=== PATIENT | female | born 1980 | race Caucasian/White ===

== ENCOUNTER 2020-11-15 23:37 | Emergency (ER) | payer BC ==
[2020-11-15] MEDS ORDERED: Lidocaine 2% 20 ml MDV ONE (23:40)
[2020-11-16] MEDS ORDERED: Ondansetron ODT 4 MG TAB ONE (00:02)
== END 2020-11-16 00:10 | disposition home or self-care (01) ==
LOC: BURERS 23:37
DX: T16.1XXA Foreign body in right ear, initial encounter (principal)
CPT/HCPCS: 99282; Q0162

== ENCOUNTER 2022-06-05 09:32 | Emergency (ER) | payer BC ==
[2022-06-05] MEDS ORDERED: Ondansetron PF 4 MG/2 ML Vial ONE (10:08)
[2022-06-05] MEDS ORDERED: Ketorolac Tromethamine 30 MG/ML VIAL ONE (10:08)
[2022-06-05 10:25] LABS: #Basophils 0.1 thou/uL (0.0-0.2); #Lymphocytes 2.6 thou/uL (1.20-3.40); #Monocytes 0.7 thou/uL (0.11-0.59); %Basophils 0.8 % (0.0-1.0); %Eosinophils 0.2 % (0.0-10.0); %Lymphocytes 16.5 % (21.0-51.0); %Monocytes 4.5 % (0.0-10.0); Hemoglobin 15.1 g/dL (12.0-16.0); Mean Corpuscular HGB CONC 34.6 g/dL (32.0-36.0); Mean Corpuscular Hemoglobin 32.3 pg (27.0-31.0); Mean Corpuscular Volume 93.4 fl (78.0-98.0); Mean Platelet Volume 7.8 fL (7.4-10.4); Platelet Count 198 10x3/uL (130-400); RBC Distribution Width 11.9 % (11.5-14.5); Red Blood Cell (RBC) Count 4.68 mill/uL (4.20-5.40); White Blood Cell (WBC) Count 15.5 10x3/uL (4.8-10.8)
[2022-06-05 10:43] LABS: ALT (SGPT) 15 U/L (8-55); AST (SGOT) 10 U/L (5-34); Albumin 4.2 g/dL (3.5-5.0); Alkaline Phosphatase 42 U/L (40-110); Anion Gap 13 mmol/L (10-20); BUN (Urea Nitrogen) 10 mg/dL (7.0-18.7); Bilirubin, Total 0.5 mg/dL (0.2-1.2); Calc. Creatinine Clearance 0 mL/min (70-130); Calcium 8.9 mg/dL (7.8-10.44); Carbon Dioxide 24 mmol/L (22-29); Chloride 104 mmol/L (98-107); Estimated GFR 90; Globulin 2.7 g/dL (2.4-3.5); Glucose 107 mg/dL (70-105); Potassium 3.5 mmol/L (3.5-5.1); Protein, Total 6.9 g/dL (6.0-8.3); Sodium 137 mmol/L (136-145)
[2022-06-05 11:01] LABS: Bilirubin Small (Negative); Blood, Urine Large (Negative); Clarity Cloudy (Clear); Glucose, Urine (Dipstick) Negative (Negative); Ketone, Urine 15 mg/dL (Negative); Leukocyte Negative (Negative); Nitrite Negative (Negative); Protein, Urine (Dipstick) 30 mg/dL (Neg-Trace)
[2022-06-05 11:03] LABS: Specific Gravity, Urine 1.036 (1.002-1.036)
[2022-06-05 11:08] LABS: Bacteria/HPF 1+ HPF (None Seen); Mucous/LPF 4+ LPF (<2+); RBC/HPF 21-50 HPF (0-3)
[2022-06-05 11:36] LABS: Pregnancy Test - Urine (BHCG) Negative (Negative); Pregu Control Background? CLEAR/WHITE (CLR/WHITE); Pregu Control Bar Appear? YES (CONTROL BAR); Specific Gravity 1.036 (1.002-1.036)
[2022-06-05] MEDS ORDERED: Lidocaine 2% PF 5 ML VIAL ONE ×2 (11:53→11:59)
[2022-06-05] MEDS ORDERED: Lidocaine 2% w/Epinephrine 1:200K 20 ML VIAL ONE (11:58)
== END 2022-06-05 13:20 | disposition home or self-care (01) ==
LOC: BURERS 09:32
DX: N13.2 Hydronephrosis with renal and ureteral calculous obstruction (principal)
CPT/HCPCS: 74176; 80053; 81003; 81015; 81025; 85025; 96365; 96375; J1885; J2001; J2405